=== PATIENT | female | born 1985 | race African-American/Black ===

== ENCOUNTER 2018-01-15 10:39 | Outpatient (CLI) | payer BC | END 2018-01-15 10:40 | disposition home or self-care (01) | LOC: BICULT 10:39 | PROVIDERS: ATTEND Family Medicine | DX: Z34.92 Encounter for supervision of normal pregnancy, unspecified, second trimester (principal); Z3A.19 19 weeks gestation of pregnancy | CPT/HCPCS: 76805 ==

== ENCOUNTER 2018-05-28 17:37 | Day surgery (SDC) | payer BC ==
[2018-05-28 18:19] VITALS: BP 133/81; TEMP 98.6; BMI 34.9
[2018-05-28 19:48] LABS: Amnisure Test No Membranes Rupture (No Rupture)
[2018-05-28 19:49] LABS: Amnisure Internal Control QC ACCEPTABLE (ACCEPTABLE)
[2018-05-28 20:52] LABS: Amnisure Test No Membranes Rupture (No Rupture)
[2018-05-28 20:53] LABS: Amnisure Internal Control QC ACCEPTABLE (ACCEPTABLE)
--- NOTE | 2018-05-28 22:07 | PRG ---
DATE OF SERVICE: 05/28/2018 OB ER ENCOUNTER PRIMARY [place] PACKER: Logan Cerrato MD CHIEF COMPLAINT: Leakage of fluid. HISTORY OF PRESENT ILLNESS: The patient is a 32-year-old G6, P3 female with an intrauterine at 38 weeks and 2 days, who is presenting to Labor and Delivery after having a large gush of fluid that dripped down her leg. Since that experienced, the patient has not had persistent leakage of fluid. She denies vaginal bleeding. She denies any fall, illness, headache, chest pain, shortness of breath, nausea, vomiting, diarrhea, or constipation. Denies hip problems, knee problems, or muscle weakness. PAST MEDICAL HISTORY: Negative. PAST SURGICAL HISTORY: Negative. ALLERGIES: NO KNOWN DRUG ALLERGIES. SOCIAL HISTORY: Denies drug, alcohol, or tobacco use. MEDICATIONS: vitamins. OBSTETRIC LABS: GC and chlamydia were negative in the first trimester. Hepatitis B surface antigen negative in the first trimester. Syphilis negative in the first trimester. HIV nonreactive in the first trimester. She is rubella immune. Her 1-hour Glucola test was 161, her 3-hour test was 89; 152, 115, and 120 at fasting 1, 2, and 3 hours. REVIEW OF SYSTEMS: Per HPI. PHYSICAL EXAMINATION: VITAL SIGNS: Blood pressure 133/81, heart rate of 96, respiratory rate of 16, temperature 98.6. GENERAL: The patient appears to be in no acute distress. She is alert, oriented, cooperative, and pleasant to interact with. HEENT: Head is normocephalic, atraumatic. LUNGS: Clear to auscultation bilaterally. HEART: Regular rate and rhythm. ABDOMEN: Soft and gravid. EXTREMITIES: Nontender, nonedematous. : Vulva without masses, lesions, or erythema. Perineum does not appear to be excessively wet. On vaginal exam, the vagina is moist. There is a minimal amount of pulling at the vagina with what appeared to be secretions on Valsalva. No expressed leakage of fluid. AmniSure test collected twice, 1 with speculum exam and 1 prior to speculum exam, were both negative. On cervical exam, the patient is 3 cm dilated and in vertex presentation. heart tracing performed, baseline is noted to be in the 130s with moderate long-term variability, positive 15 x 15 accelerations, no decelerations. The patient is having irregular contractions that are mild in nature to the patient's experience. ASSESSMENT AND PLAN: The patient is a 32-year-old multiparous female with an intrauterine at 38 weeks with no evidence of rupture of membranes. The patient has a reactive NST and reassuring heart tracing. She is scheduled for an induction of labor next Sunday. She has been given term labor precautions. Job ID: [id number]
== END 2018-05-28 21:10 | disposition home or self-care (01) ==
LOC: L&D/OP 17:37
PROVIDERS: ATTEND Family Medicine
DX: O99.89 Other specified diseases and conditions complicating pregnancy, childbirth and the puerperium (principal); N89.8 Other specified noninflammatory disorders of vagina; Z3A.38 38 weeks gestation of pregnancy; Z79.899 Other long term (current) drug therapy
CPT/HCPCS: 84112; 87480; 87510; 87660; 99285

== ENCOUNTER 2018-06-02 22:00 | Inpatient (IN) | payer BC ==
[2018-06-02] MEDS ORDERED: Ondansetron PF 4 MG/2 ML Vial IVP PRN (22:14)
[2018-06-02] MEDS ORDERED: NS w/ Oxytocin 10 units 500 ML IV SCH (22:14)
[2018-06-02] MEDS ORDERED: Butorphanol Tartrate 1 MG/ML VIAL SLOW IVP PRN (22:14)
[2018-06-02] MEDS ORDERED: Acetaminophen 500 MG TAB PO PRN (22:14)
[2018-06-02] MEDS ORDERED: Lidocaine 1% (PF) 30 ML VIAL SC PRN (22:14)
[2018-06-02] MEDS ORDERED: Ibuprofen 800 MG TAB PO PRN (22:14)
[2018-06-02] MEDS ORDERED: HYDROcodone/Acetaminophen 5/325 mg Tablet PO PRN (22:14)
[2018-06-02] MEDS ORDERED: Promethazine HCl 25 MG/ML VIAL IM PRN (22:14)
[2018-06-02] MEDS ORDERED: Zolpidem Tartrate 5 MG TAB PO PRN (22:14)
[2018-06-02] MEDS ORDERED: Methylergonovine 0.2 MG/ML VIAL IM PRN (22:14)
[2018-06-02 22:27] VITALS: BMI 34.4
[2018-06-02 23:02] LABS: Hemoglobin 12.4 g/dL (12.0-16.0); Mean Corpuscular HGB CONC 34.6 g/dL (32.0-36.0); Mean Corpuscular Hemoglobin 27.8 pg (27.0-31.0); Mean Corpuscular Volume 80.5 fL (78.0-98.0); Mean Platelet Volume 8.6 fL (7.4-10.4); Platelet Count 174 thou/uL (130-400); RBC Distribution Width 12.8 % (11.5-14.5); Red Blood Cell (RBC) Count 4.47 mill/uL (4.20-5.40); White Blood Cell (WBC) Count 4.9 thou/uL (4.8-10.8)
[2018-06-02 23:40] LABS: HBSAg Index 0.17 S/CO (0-0.99); Hep B Surf Ag Non-Reactive S/CO (NonReactive); Syphilis Antibody Nonreactive (Nonreactive); Syphilis Antibody Index 0.02 S/CO (<1.00 Non-Reactive)
[2018-06-03] MEDS ORDERED: Fentanyl 4 mcg/Bup 0.1% Cadd 100 ML ONE ×2 (00:28→08:44)
[2018-06-03] MEDS: Lactated Ringer's 1,000 ML IV SCH ×2 (02:51→18:07)
[2018-06-03] MEDS ORDERED: Promethazine HCl 25 MG/ML VIAL IM PRN (02:54)
[2018-06-03] MEDS ORDERED: diphenhydrAMINE 50 MG/ML VIAL IVP PRN (02:54)
[2018-06-03] MEDS ORDERED: Acetaminophen 325 MG TAB PO PRN (02:54)
[2018-06-03] MEDS ORDERED: ePHEDrine/0.9% NaCl/PF SYRINGE 50 mg/10 ml SLOW IVP PRN (02:54)
[2018-06-03] MEDS ORDERED: Naloxone HCl 0.4 mg/ml Vial IVP PRN ×2 (02:54)
[2018-06-03] MEDS ORDERED: Eucerin (Mineral Oil/Petrolatum,White) 30 gm Jar TOP PRN (02:54)
[2018-06-03] MEDS ORDERED: Lactated Ringer's 500 ML IV PRN (02:54)
[2018-06-03] MEDS ORDERED: Ondansetron PF 4 MG/2 ML Vial IVP PRN (02:54)
[2018-06-03] MEDS ORDERED: Communication Order-Pharmacy FS SCH (03:00)
[2018-06-03] MEDS ORDERED: Fentanyl 4 mcg/Bupivacaine 0.1% Cassette 100 ML EPIDURAL SCH (03:00)
--- NOTE | 2018-06-03 07:20 | HP ---
HISTORY OF PRESENT ILLNESS: This is a 32-year-old black female, G7, P2, EDC of 120 at 39 weeks gestation, being admitted for an elective induction. course has been uncomplicated. The patient has been having occasional contractions. She has been dilated 3 cm over the past week. PAST MEDICAL HISTORY: History of dysplasia, preeclampsia with the first . ALLERGIES: NONE. PAST SURGICAL HISTORY: Includes vaginal delivery x3, history of a cervical cone. FAMILY HISTORY: Multiple family members with diabetes, hypertension, colon cancer, and stroke. SOCIAL HISTORY: She is . She has one son and two daughters. 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 REVIEW OF SYSTEMS: As above. PHYSICAL EXAMINATION: VITAL SIGNS: Stable, afebrile. HEENT: Clear. HEART: Regular rate and rhythm. LUNGS: Clear. ABDOMEN: Gravid. EXTREMITIES: No edema. LABORATORY DATA: A1c 5.0. GBS pending. Three-hour GTT negative. Paps are negative. GC, chlamydia negative, HIV negative, thyroid normal, hepatitis B negative. Syphilis negative. Urine culture negative. Rubella immune. A-positive blood type. Paps are negative. ASSESSMENT: A 32-year-old black female, G7, P2, at term. PLAN: 1. Routine L and D orders. 2. Anesthesia preop. 3. Pitocin induction. Job ID: [id number]
[2018-06-03] MEDS ORDERED: Bupivacaine/Epinephrine 0.25% 30 ML VIAL ONE (09:00)
[2018-06-03] MEDS: NS / Oxytocin 40 units/1000ml 1,000 ML IV PRN ×3 (10:03→11:53)
[2018-06-03] MEDS: Misoprostol 200 MCG TAB ONE ×2 (12:17→17:30)
[2018-06-03] MEDS ORDERED: NS / Oxytocin 40 units/1000ml 1,000 ML IV SCH (13:56)
[2018-06-03] MEDS ORDERED: Misoprostol 200 MCG TAB VAG PRN (13:56)
[2018-06-03] MEDS ORDERED: Bisacodyl 10 MG SUPP PR PRN (13:56)
[2018-06-03] MEDS ORDERED: Milk Of Magnesia 30 ML UDCUP PO PRN (13:56)
[2018-06-03] MEDS ORDERED: Adacel (T-DAP) 0.5 ML SYRINGE IM ONE (15:00)
[2018-06-03] MEDS: Ferrous Sulfate 325 MG TAB PO SCH (17:30)
[2018-06-03] MEDS ORDERED: HYDROcodone/Acetaminophen 5/325 mg Tablet PO PRN ×2 (19:44)
[2018-06-03] MEDS: Docusate Calcium (SURFAK) 240 MG CAP PO SCH (21:07)
[2018-06-03] MEDS: Ibuprofen 800 MG TAB PO PRN (21:08)
[2018-06-03] MEDS ORDERED: Benzocaine/Menthol 20-0.5% 60 ML CAN TOP PRN (22:04)
[2018-06-04] MEDS: Ibuprofen 800 MG TAB PO PRN (04:52)
[2018-06-04 04:55] VITALS: TEMP 97.7
[2018-06-04 06:06] LABS: Hemoglobin 10.9 g/dL (12.0-16.0); Mean Corpuscular HGB CONC 34.3 g/dL (32.0-36.0); Mean Corpuscular Hemoglobin 27.9 pg (27.0-31.0); Mean Corpuscular Volume 81.3 fL (78.0-98.0); Platelet Count 134 thou/uL (130-400); RBC Distribution Width 12.8 % (11.5-14.5); White Blood Cell (WBC) Count 7.4 thou/uL (4.8-10.8)
[2018-06-04 08:20] VITALS: BP 126/76
[2018-06-04] MEDS: Ferrous Sulfate 325 MG TAB PO SCH (09:11)
[2018-06-04] MEDS: Docusate Calcium (SURFAK) 240 MG CAP PO SCH (11:10)
== END 2018-06-04 12:25 | disposition home or self-care (01) | DRG 807 ==
LOC: L&D 22:13 → 3SW 06-03 13:12
PROVIDERS: ADMIT Family Medicine; ATTEND Family Medicine
PROC: 10E0XZZ Delivery of Products of Conception, External Approach (ICD-10-PCS; principal; 2018-06-02)
PROC: 3E033VJ Introduction of Other Hormone into Peripheral Vein, Percutaneous Approach (ICD-10-PCS; 2018-06-02)
DX: O80 Encounter for full-term uncomplicated delivery (principal); Z37.0 Single live birth; Z3A.39 39 weeks gestation of pregnancy
CPT/HCPCS: 36415; 51702; 85027; 86780; 86850; 86900; 86901; 87081; 87340; 90471; 90686; 90715; G0008; J2001; J2210